=== PATIENT | female | born 1995 | race Two or more races ===

== ENCOUNTER 2017-11-27 09:01 | Inpatient (IN) | payer OTHER ==
[2017-11-27 10:34] LABS: RUPTURE FETAL MEMBRANES POSITIVE (NEGATIVE)
[2017-11-27] MEDS: LACTATED RINGER'S 1,000 ML IV* ×2 (11:21→11:52)
[2017-11-27 11:24] LABS: ADD MAN DIFF? NO
[2017-11-27 11:30] LABS: WHITE BLOOD COUNT 10.7 10^3/ul (4.8-10.8)
[2017-11-27 11:30] LABS: BASOPHILS % 0.3 % (0.0-2.0); EOSINOPHILS # 0.1 10^3/ul (0.0-0.5); EOSINOPHILS % 0.5 % (0.0-7.0); HEMATOCRIT 36.2 % (37.0-47.0); LYMPHOCYTES # 2.1 10^3/ul (0.8-2.9); LYMPHOCYTES % 19.7 % (15.0-51.0); MEAN CORPUSCULAR HEMOGLOBIN 29.6 pg (29.0-33.0); MEAN CORPUSCULAR HGB CONC 33.1 g/dl (32.0-37.0); MEAN CORPUSCULAR VOLUME 89.2 fl (82.0-101.0); MEAN PLATELET VOLUME 10.6 fl (7.4-10.4); MONOCYTE # 0.5 10^3/ul (0.3-0.9); MONOCYTES % 4.3 % (0.0-11.0); NEUTROPHILS % 74.5 % (39.0-77.0); PLATELET COUNT 200 10^3/UL (140-415); RED BLOOD COUNT 4.06 10^6/ul (4.20-5.40)
[2017-11-27] MEDS ORDERED: LIDOCAINE 1% (MPF) 30 ML INJ INJ (11:30)
[2017-11-27] MEDS ORDERED: CARBOPROST 250 MCG INJ IM (11:30)
[2017-11-27] MEDS ORDERED: BUTORPHANOL 1 MG INJ IV (11:30)
[2017-11-27] MEDS ORDERED: OXYTOCIN 30 UNITS/LR 500 ML IV (11:30)
[2017-11-27] MEDS ORDERED: IBUPROFEN 600 MG TAB PO (11:30)
[2017-11-27] MEDS ORDERED: MISOPROSTOL 200 MCG TAB PR (11:30)
[2017-11-27] MEDS ORDERED: BUTORPHANOL 2 MG INJ IV (11:30)
[2017-11-27] MEDS ORDERED: METHYLERGONOVINE 0.2 MG INJ IM (11:30)
[2017-11-27 11:51] LABS: INR 0.82; PARTIAL THROMBOPLASTIN TIME 26.9 Sec (25.0-35.0); PROTIME 11.4 Sec (11.9-14.9); PT RATIO 0.9
[2017-11-27 12:22] LABS: HEPATITIS B SURFACE ANTIGEN NEGATIVE (NEGATIVE)
[2017-11-27] MEDS: OXYTOCIN 30 UNITS/LR 500 ML IV ×3 (12:47→20:45)
[2017-11-27] MEDS ORDERED: ACETAMINOPHEN 325 MG TAB PO (15:00)
[2017-11-27] MEDS ORDERED: OXYCODONE/ASPIRIN (4.88/325) TAB PO ×2 (15:00)
[2017-11-27] MEDS ORDERED: ONDANSETRON 4 MG INJ IV (15:00)
[2017-11-27] MEDS ORDERED: HYDROCODONE/APAP (5/325) TAB PO ×2 (15:00)
[2017-11-27 15:13] LABS: RAPID PLASMA REAGIN NONREACTIVE (NR)
[2017-11-27] MEDS: DIBUCAINE 1% 30 GM OINT PR (16:03)
[2017-11-27] MEDS: BENZOCAINE 20% 56 ML SPRAY TOP (16:03)
[2017-11-27] MEDS: WITCH HAZEL/GLYCERIN PAD PR (16:03)
[2017-11-27] MEDS: LANOLIN 7 GM TUBE TOP (16:04)
[2017-11-27] MEDS: IBUPROFEN 600 MG TAB PO ×2 (17:45→23:43)
[2017-11-27] MEDS: SENNA/DOCUSATE NA (8.6MG/50MG) TAB PO (20:37)
[2017-11-28] MEDS: IBUPROFEN 600 MG TAB PO ×4 (05:52→23:50)
[2017-11-28 09:02] LABS: ADD MAN DIFF? NO
[2017-11-28 09:09] LABS: BASOPHILS % 0.2 % (0.0-2.0); EOSINOPHILS # 0.1 10^3/ul (0.0-0.5); EOSINOPHILS % 1.1 % (0.0-7.0); HEMATOCRIT 32.8 % (37.0-47.0); HEMOGLOBIN 10.9 g/dl (12.0-16.0); LYMPHOCYTES # 2.5 10^3/ul (0.8-2.9); LYMPHOCYTES % 24.7 % (15.0-51.0); MEAN CORPUSCULAR HEMOGLOBIN 30.4 pg (29.0-33.0); MEAN CORPUSCULAR HGB CONC 33.2 g/dl (32.0-37.0); MEAN CORPUSCULAR VOLUME 91.6 fl (82.0-101.0); MEAN PLATELET VOLUME 10.8 fl (7.4-10.4); MONOCYTE # 0.6 10^3/ul (0.3-0.9); NEUTROPHIL # 6.8 10^3/ul (1.6-7.5); NEUTROPHILS % 67.3 % (39.0-77.0); PLATELET COUNT 169 10^3/UL (140-415); RED BLOOD COUNT 3.58 10^6/ul (4.20-5.40)
[2017-11-28 09:09] LABS: WHITE BLOOD COUNT 10.1 10^3/ul (4.8-10.8)
[2017-11-28] MEDS: SENNA/DOCUSATE NA (8.6MG/50MG) TAB PO ×2 (11:41→20:24)
[2017-11-29] MEDS: IBUPROFEN 600 MG TAB PO (05:50)
[2017-11-29] MEDS: SENNA/DOCUSATE NA (8.6MG/50MG) TAB PO (09:00)
[2017-11-29] MEDS: MEASLES,MUMPS,RUBELLA VACCINE INJ SC* (09:58)
== END 2017-11-29 12:35 | disposition home or self-care (01) | DRG 775 ==
LOC: OBT 09:01 → L-D 09:01 → OBT 10:45 → L-D 11:23 → PP1 16:03
PROVIDERS: Obstetrics & Gynecology
PROC: 10E0XZZ Delivery of Products of Conception, External Approach (ICD-10-PCS; principal; 2017-11-27)
PROC: 0HQ9XZZ Repair Perineum Skin, External Approach (ICD-10-PCS; 2017-11-27)
PROC: 0UQMXZZ Repair Vulva, External Approach (ICD-10-PCS; 2017-11-27)
PROC: 3E033VJ Introduction of Other Hormone into Peripheral Vein, Percutaneous Approach (ICD-10-PCS; 2017-11-27)
DX: O69.81X0 Labor and delivery complicated by cord around neck, without compression, not applicable or unspecified (principal); O70.0 First degree perineal laceration during delivery; O99.284 Endocrine, nutritional and metabolic diseases complicating childbirth; E03.9 Hypothyroidism, unspecified; Z3A.37 37 weeks gestation of pregnancy; Z37.0 Single live birth
CPT/HCPCS: 84112; 84443; 85025; 85610; 85730; 86592; 86850; 86900; 86901; 87340